=== PATIENT | male | born 1970 | race Asian ===

== ENCOUNTER 2017-04-02 14:05 | Emergency (ER) | payer OTHER ==
[~2017-04-02] VITALS: Ht 180.3 cm; Wt 80.0 kg
[2017-04-02 14:12] VITALS: BP 167/111
== END 2017-04-02 18:18 | disposition left against medical advice (07) ==
LOC: ER 14:23
DX: F41.9 Anxiety disorder, unspecified (principal); I10 Essential (primary) hypertension; E11.9 Type 2 diabetes mellitus without complications; Z91.14 Patient's other noncompliance with medication regimen
CPT/HCPCS: 99283